=== PATIENT | female | born 1950 | race Caucasian/White ===

== ENCOUNTER 2021-05-01 18:37 | Emergency (ER) | payer OTHER, MEDICARE ==
[~2021-05-01] VITALS: Ht 167.7 cm; Wt 65.7 kg
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
[2021-05-01 19:31] LABS: BASOPHILS % (AUTO) 0 % (0-10); EOSINOPHILS % (AUTO) 1 % (0-10); HEMATOCRIT 42 % (35-52); HEMOGLOBIN 13.4 G/DL (11.5-16.0); LYMPHOCYTES % (AUTO) 29 % (12-44); MEAN CORPUSCULAR HEMOGLOBIN 29 PG (25-34); MEAN CORPUSCULAR HGB CONC 32 G/DL (32-36); MEAN CORPUSCULAR VOLUME 91 FL (80-99); MEAN PLATELET VOLUME 9.8 FL (7.4-10.4); MONOCYTES % (AUTO) 9 % (0-12); NEUTROPHILS % (AUTO) 60 % (42-75); PLATELET COUNT 221 10^3/uL (130-400); WHITE BLOOD COUNT 7.3 10^3/uL (4.3-11.0)
[2021-05-01 19:32] LABS: EOSINOPHILS # (AUTO) 0.1 10^3/uL (0.0-0.3); LYMPHOCYTES # (AUTO) 2.1 X 10^3 (1.0-4.0); MONOCYTES # (AUTO) 0.6 X 10^3 (0.0-1.0); NEUTROPHILS # (AUTO) 4.4 X 10^3 (1.8-7.8)
[2021-05-01 19:37] LABS: PROTHROMBIN TIME PATIENT 13.7 SEC (12.2-14.7)
[2021-05-01 19:44] LABS: BUN/CREATININE RATIO 20; CALCIUM 9.2 MG/DL (8.5-10.1); CARBON DIOXIDE 26 MMOL/L (21-32); CHLORIDE 104 MMOL/L (98-107); CREATININE SERUM 0.81 MG/DL (0.60-1.30); GFR ESTIMATED > 60; GLUCOSE 94 MG/DL (70-105); POTASSIUM 3.4 MMOL/L (3.6-5.0); SODIUM 143 MMOL/L (135-145)
[2021-05-01] MEDS ORDERED: ONDANSETRON 4 MG/2 ML (SDV) Z0FRAN IVP ONE (19:45)
[2021-05-01] MEDS ORDERED: fentaNYL INJ 100 MCG/2 ML AMP IVP PRN (19:45)
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
[2021-05-01 20:28] VITALS: BP 166/73
== END 2021-05-01 20:28 | disposition short-term general hospital (02) ==
LOC: ER FS 18:38
DX: S06.360A Traumatic hemorrhage of cerebrum, unspecified, without loss of consciousness, initial encounter (principal); S16.1XXA Strain of muscle, fascia and tendon at neck level, initial encounter; F07.81 Postconcussional syndrome; R40.2410 Glasgow coma scale score 13-15, unspecified time; V89.2XXA Person injured in unspecified motor-vehicle accident, traffic, initial encounter; Y92.488 Other paved roadways as the place of occurrence of the external cause
CPT/HCPCS: 36415; 70450; 70486; 72125; 80048; 85025; 85610; 85730; 99291

== ENCOUNTER 2021-05-09 13:24 | Emergency (ER) | payer OTHER, MEDICARE ==
[~2021-05-09] VITALS: Ht 167.7 cm; Wt 63.4 kg
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
[2021-05-09 14:54] VITALS: BP 144/66
== END 2021-05-09 14:55 | disposition home or self-care (01) ==
LOC: EDUNIT# 13:24 → ER FS 13:26
DX: S00.03XA Contusion of scalp, initial encounter (principal); S06.9X0A Unspecified intracranial injury without loss of consciousness, initial encounter; V89.2XXA Person injured in unspecified motor-vehicle accident, traffic, initial encounter
CPT/HCPCS: 70450; 72125

== ENCOUNTER → 2021-05-21 | Outpatient (CLI) | payer MEDICARE, OTHER ==
[~2021-05-21] MED LIST: GADOBUTROL 7.5 MMOL/7.5 ML (GADAVIST) VIAL IV ONE
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
== END ==
LOC: RAD 14:45
PROVIDERS: ATTEND Neurological Surgery
DX: I63.9 Cerebral infarction, unspecified (principal); I62.9 Nontraumatic intracranial hemorrhage, unspecified; G93.6 Cerebral edema; I67.81 Acute cerebrovascular insufficiency
CPT/HCPCS: 70553

== ENCOUNTER 2021-07-13 13:24 | Emergency (ER) | payer OTHER, MEDICARE ==
[~2021-07-13] VITALS: Ht 167.7 cm; Wt 65.8 kg
[2021-07-13 13:28] VITALS: BP 158/90
--- NOTE | 2021-07-13 13:39 | ED EENT ---
History of Present Illness General Chief Complaint: Eye Problems Stated Complaint: LT EYE BLEED Source: patient History of Present Illness Date Seen by Provider: Jul 13, 2021 Time Seen by Provider: 13:39 Initial Comments Patient with left scleral hemorrhage abrupt onset this morning. Reports subtle foreign body sensation no loss or change in vision. Patient is not on anticoagulation therapy and states her blood pressure is normally well controlled. Denies trauma to this region. No headache. No other acute symptoms or complaints. Timing/Duration: abrupt Severity: mild Location: eye (L) Prearrival Treatment: other Modifying Factors: Improves With Other Associated Symptoms: other Allergies and Home Medications Allergies Coded Allergies: No Known Drug Allergies (Unverified , 05/01/21) Patient Home Medication List Home Medication List Reviewed: Yes Review of Systems Review of Systems Constitutional: see HPI Eyes: See HPI Past Rqovqxy-Bwbzjr-Bxmeta Hx Patient Social History Tobacco Use?: Yes Smoking Status: Never a Smoker Substance use?: No Alcohol Use?: No Pt feels they are or have been: No Immunizations Up To Date Tetanus Booster (TDap): Unknown Seasonal Allergies Seasonal Allergies: No Past Medical History Surgeries: Yes (club foot, hemmorroid/ fissure) Adenoidectomy, Appendectomy, Tonsillectomy Respiratory: No Cardiac: No Neurological: Yes (brain bleed) Traumatic Brain Injury Genitourinary: No Gastrointestinal: Yes (diverticulitis) Musculoskeletal: Yes (club foot) Endocrine: No HEENT: No Cancer: No Psychosocial: No Integumentary: No Blood Disorders: No Visual Acuity : Eye Location: Left Physical Exam Vital Signs Vital Signs - First Documented 07/13/21 13:28 Temp 36.1 Pulse 64 Resp 18 B/P (MAP) 158/90 (112) Pulse Ox 99 O2 Delivery Room Air Height, Weight, BMI Height: '" Weight: lbs. oz. kg; 22.00 BMI Method: General Appearance: WD/WN, no apparent distress Eyes: left eye other (Lateral scleral hemorrhage); bilateral eye PERRL, bilateral eye EOMI Nose: normal inspection Progress/Results/Core Measures Results/Orders Vital Signs/I&O 07/13/21 13:28 Temp 36.1 Pulse 64 Resp 18 B/P (MAP) 158/90 (112) Pulse Ox 99 O2 Delivery Room Air Departure Communication (Admissions) Isolated scleral hemorrhage Impression Primary Impression: Scleral hemorrhage of left eye Disposition: HOME, SELF-CARE Condition: Stable Departure-Patient Inst. Decision time for Depature: 13:54 Referrals: PERLA MAXWELL MD (PCP/Family) Primary Care Physician Patient Instructions: Subconjunctival Hemorrhage Add. Discharge Instructions: You were evaluated in the emergency department for bleeding of the left eye membrane. This is a medical condition that does not require medical treatment or follow-up. You may take Tylenol as needed for pain. Follow-up with your eye doctors if further concerns. All discharge instructions reviewed with patient and/or family. Voiced understanding. NING ZHENG DO Jul 13, 2021 13:39
--- OUTSIDE RECORDS SUMMARY | 2021-07-13 23:17 | XMS REPORT | Encounter Summary ---
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 [place] [address] Social History Date Tobacco Use Types Packs/Day Years Used Never Smoker Smokeless Tobacco: Never Used Sex Assigned at Date Recorded Not on file Date Recorded COVID-19 Exposure Response 05/01/2021 7:54 PM CDT In the last month, have you been in contact with No / Unsure someone who was confirmed or suspected to have Coronavirus / COVID-19? documented as of this encounter Functional Status Date of Assessment Functional Status Response 05/01/2021 Does the patient have a hearing impairment: No documented as of this encounter Plan of Treatment Order Schedule Name Type Priority Associated Diag noses Expected: 05/17/2021 (Approximate), Expi res: 05/17/2022 MRI HEAD WO/W CONTRAST Imaging Routine Intracr anial hemorrhage (HCC) documented as of this encounter Goals Goal Patient Associated Recent Progress Patient-Stat Aut hor Goal Type Problems ed? Remain independent Hospital Not on track No Ashrenetta ft, (05/02/2021 8:04 PM YANIRA Mims CDT) documented as of this encounter Visit Diagnoses Diagnosis Traumatic brain injury, with loss of co nsciousness of 30 minutes or less, initial encounter (HCC) - Primary Intracranial hemorrhage (HCC) Unspecified intracranial hemorrhage documented in this encounter Additional Health Concerns Assessment Noted Time A fall risk assessment has been completed for the pat ient 05/04/2021 9:05 AM CDT documented as of this encounter
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
--- OUTSIDE RECORDS SUMMARY | 2021-07-13 23:17 | XMS REPORT | Encounter Summary ---
Author Author [facility] Organization [facility] Address Unknown Phone Unavailable Care Team Providers Care Mail Room Clerk Name Role Phone Tarik Henning MD PCP Reason for Visit * Reason Onset Date Comments Referral 06/07/2021 Encounter Details Care Team Description Date Type Department Dotty Pineda MD [address] [facility] [address] [place] [address] Referral 06/07/2021 Telephone Rehabilitation Medi cine: [facility] [place] [address] [address] Social History Date Tobacco Use [...] on file Date Recorded COVID-19 Exposure Response 05/31/2021 2:26 PM CDT In the last month, have you been in contact with No / Unsure someone who was confirmed or suspected to have Coronavirus / COVID-19? documented as of this encounter Functional Status Date of Assessment Functional Status Response 05/01/2021 Does the patient have a hearing impairment: No documented as of this encounter Miscellaneous Notes * Telephone Encounter - Rosendo Buckley - 06/07/2021 10:17 AM CDT Attempted to contact grand daughter as I have been unable to contact patient. [facility], PT and Speech therapy referrals be faxed to [facility] in [place], [place]. As I spoke with that office they can only acce pt the PT and OT orders. No answer left voice mail requesting where to fax these referrals too either a new location or where to fax the speech therapy referral .Rosendo Bukcley documented in this encounter Plan of Treatment Not on filedocumented as of this encounter Goals Goal Patient Associated Recent Progress Patient-Stat Aut hor Goal Type Problems ed? Remain independent Hospital Not on track No Tony mesa, (05/02/2021 8:04 PM Prasanna RN CDT) documented as of this encounter Visit Diagnoses Not on filedocumented in this encounter Additional Health Concerns Assessment Noted Time PHQ-9 Depression Total Score: 4 05/31/2021 3:00 PM CDT A fall risk assessment has been completed for the pat ient 05/31/2021 3:15 PM CDT PHQ-2 Depression Total Score: 0 05/31/2021 3:00 PM CDT documented as of this encounter
--- OUTSIDE RECORDS SUMMARY | 2021-07-13 23:17 | XMS REPORT | Encounter Summary ---
Author Author [facility] Organization [facility] Address Unknown Phone Unavailable Care Team Providers Care Salesperson Stereo Equipment Name Role Phone Tarik Henning MD PCP Encounter Details Care Team Description Date Type Department 05/21/2021 Hospital Imaging: [facility] [place] [address], [address] [place] [address] Social History Date Tobacco Use Types Packs/Day [...] impairment: No documented as of this encounter Medications at Time of Discharge Start Date End Date Medication Sig Dispensed Refills WYHAUSZ-HYCLISGME-IPEGVZC Take 1 tablet 0 D2 PO by mouth twice daily. cetirizine (ZYRTEC) 10 mg Take 10 mg by 0 tablet mouth at bedtime daily. coenzyme Q10 100 mg cap Take 100 mg 0 by mouth daily. 05/04/2021 melatonin 3 mg tab Take one 0 tablet by mouth at bedtime daily. vitamin E 100 unit Take 100 0 capsule Units by mouth daily. 05/04/2021 06/08/2021 acetaminophen (TYLENOL) Take two 60 tablet 0 325 mg tablet tablets by mouth every 6 hours while awake for 5 days, THEN two tablets every 6 hours as needed for Pain for up to 30 days. 05/04/2021 05/31/2021 docusate (COLACE) 100 mg Take one 180 capsule 0 capsule capsule by mouth twice daily. 05/04/2021 05/31/2021 meclizine (ANTIVERT) 25 Take one 30 each 0 mg tablet tablet by mouth three times daily. 05/04/2021 05/31/2021 ondansetron (ZOFRAN ODT) Dissolve one 10 tablet 0 8 mg rapid dissolve tablet by tablet mouth every [address] on tongue to disolve. 05/04/2021 05/31/2021 polyethylene glycol 3350 Take one 12 each 0 (MIRALAX) 17 g packet packet by mouth daily as needed. documented as of this encounter Discharge Disposition Code Departure Means Destination Disposition Home Home or Self Care documented in this encounter Plan of Treatment Not on filedocumented as of this encounter Goals Goal Patient Associated Recent Progress Patient-Stat Aut hor Goal Type Problems ed? Remain independent Hospital Not on track No Tony mesa, (05/02/2021 8:04 PM YANIRA Mims CDT) documented as of this encounter Procedures Comments Procedure Name Priority Date/Time Associated Diag nosis MRI HEAD EXTERNAL IMAGING Routine 05/21/2021 12:00 AM CDT documented in this encounter Results * MRI HEAD EXTERNAL IMAGING (05/21/2021 12:00 AM CDT) Specimen Narrative Performed At This order has been auto finalized and does not contain a result. documented in this encounter Visit Diagnoses Not on filedocumented in this encounter Additional Health Concerns Assessment Noted Time A fall risk assessment has been completed for the pat ient 05/04/2021 9:05 AM CDT documented as of this encounter
--- OUTSIDE RECORDS SUMMARY | 2021-07-13 23:17 | XMS REPORT | Encounter Summary ---
Author Author [facility] Organization [facility] Address Unknown Phone Unavailable Care Team Providers Care Interactive Digital Media Specialist Name Role Phone Tarik Henning MD PCP Encounter Details Care Team Description Date Type Department Team, Tbi Coordinator 05/24/2021 Documentation Traumatic Brain Inj ury: [facility] [place] [address], [address] [place] [address] Social History Date Tobacco Use [...] as of this encounter Progress Notes * Carlyn Hernandez RN - 05/24/2021 11:34 AM CDT Fax sent to [facility] ([phone]) for MRI Head image and report. Fax confirmation received. documented in this encounter Plan of Treatment Not on filedocumented as of this encounter Goals Goal Patient Associated Recent Progress Patient-Stat Aut hor Goal Type Problems ed? Remain independent Hospital Not on track Nichole mesa, (05/02/2021 8:04 PM YANIRA Mims CDT) documented as of this encounter Visit Diagnoses Not on filedocumented in this encounter Additional Health Concerns Assessment Noted Time A fall risk assessment has been completed for the pat ient 05/04/2021 9:05 AM CDT documented as of this encounter
--- OUTSIDE RECORDS SUMMARY | 2021-07-13 23:17 | XMS REPORT | Encounter Summary ---
Author Author [facility] Organization [facility] Address Unknown Phone Unavailable Care Team Providers Care Scout Executive Name Role Phone Tarik Henning MD PCP Reason for Visit * Reason Onset Date Comments Eye Problem 07/13/2021 Encounter Details Care Team Description Date Type Department Homer Weiss MD [address] [address] Eye Problem 07/13/2021 Telephone Eye Care: [address] [place] [id number] Social History Date Tobacco Use Types [...] encounter Miscellaneous Notes * Telephone Encounter - Pam Chawla COA - 07/13/2021 1:35 PM CDT Patient contacted clinic today stating that she noticed a heme in white part of left eye. Patient did not injure or exert pressure to her eyes, she maintains th is just appeared as a red blob. No decrease in vision overall, slight blurrines s for reading. Pt went into [place] [facility] to be seen as she is a distance from our clinic. Patient has requested FUV with Dr. Weiss, this has been scheduled or Friday@10:15AM. If this appt. Is not needed after pt. Seen at ER, aawis ling will call to cancel. No further action required today. documented in this encounter Plan of Treatment [...] risk assessment has been completed for the awais ling 05/31/2021 3:15 PM CDT PHQ-2 Depression Total Score: 0 05/31/2021 3:00 PM CDT documented as of this encounter
--- OUTSIDE RECORDS SUMMARY | 2021-07-13 23:17 | XMS REPORT | Encounter Summary ---
Author Author [facility] Organization [facility] Address Unknown Phone Unavailable Care Team Providers Care Drywall Finisher Foreman Name Role Phone Tarik Henning MD PCP Reason for Visit * Reason Onset Date Comments General Question 05/18/2021 Encounter Details Care Team Description Date Type Department Fatuma Harper MD [address] [facility] [address] [place] [address] General Question 05/18/2021 Telephone Traumatic Brain Inj ury: Main [place], [facility] [address] [place] [address] Social History Date Tobacco Use [...] encounter Miscellaneous Notes * Telephone Encounter - Carlyn Hernandez RN - 05/18/2021 2:04 PM CDT Patient is scheduled to f/u in TBI Clinic.Patient's granddaughter just called an d said patient hit her head on 05/09-went to ED in [place], [place] and scanned her h ead and there was no change from previous scan. Reports no falls or head trauma since then. When she discharged from the hospital she had some issues with her l eft peripheral visit. Patient woke up this am and is reporting "fogginess" with her vision and some new temporal pain. No other neurological changes. Discussed with Dr. Harper and instructed pt to go to the ED. Pt's granddaughter in agreem ent and verbalized understanding. documented in this encounter Plan of Treatment [...]
--- OUTSIDE RECORDS SUMMARY | 2021-07-13 23:17 | XMS REPORT | Encounter Summary ---
Author Author [facility] Organization [facility] Address Unknown Phone Unavailable Care Team Providers Care Geographic Information Scientist Name Role Phone Tarik Henning MD PCP Encounter Details Care Team Description Date Type Department 05/31/2021 Travel Social History Date Tobacco Use Types Packs/Day [...] as of this encounter Plan of Treatment Not on [...]
--- OUTSIDE RECORDS SUMMARY | 2021-07-13 23:17 | XMS REPORT | Encounter Summary ---
Author Author [facility] Organization [facility] Address Unknown Phone Unavailable Care Team Providers Care Boilermaker Industrial Boilers Name Role Phone Tarik Henning MD PCP Encounter Details Care Team Description Date Type Department Dotty Pineda MD [address] [facility] [address] [place] [address] 06/05/2021 Documentation Rehabilitation Medi cine: Main [place], [facility] [address], [address] [address] Social History Date Tobacco Use [...] as of this encounter Progress Notes * Rosendo Buckley - 06/05/2021 12:18 PM CDT Faxed [facility] Radiology Scheduling in [place], [place] at fax# [phone], patient MRI head order to be scheduled around 08/01/2021 and request for appointment conf irmation so we may coordinate clinic visit.Rosendo Buckley documented in this encounter Plan of Treatment [...]
--- OUTSIDE RECORDS SUMMARY | 2021-07-13 23:17 | XMS REPORT | Encounter Summary ---
Author Author [facility] Organization [facility] Address Unknown Phone Unavailable Care Team Providers Care Mail Carrier And Clerk Name Role Phone Tarik Henning MD PCP Encounter Details Care Team Description Date Type Department Dotty Pineda MD [address] [facility] [address] [place] [address] 06/08/2021 Documentation Rehabilitation Medi cine: Main [place], [facility] [address], [address] [address] Social History Date Tobacco Use [...] encounter Progress Notes * Rosendo Buckley - 06/08/2021 2:22 PM CDT Spoke with patient. Per patient request we have faxed PT/OT referrals to [facility] in [place], at fax# [phone].Rosendo Buckley [facility] [place] [facility] [place] [phone][place]Rosendo Buckley Faxed patient MRI head to [facility] at fax# [phone] to be c ompleted around 08/01/2021.Rosendo Buckley Faxed Disability report to [employer] at fax# [phone].Rosendo Buckley documented in this encounter Plan of Treatment Not on filedocumented as of this encounter Goals Goal Patient Associated Recent Progress Patient-Stat Aut hor Goal Type Problems ed? Remain independent Hospital Not on track Nichole mesa, (05/02/2021 8:04 PM Prasanna RN CDT) [...]
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
--- OUTSIDE RECORDS SUMMARY | 2021-07-13 23:17 | XMS REPORT | Encounter Summary ---
Author Author [facility] Organization [facility] Address Unknown Phone Unavailable Care Team Providers Care Quality Control Engineering Technician Name Role Phone Tarik Henning MD PCP Encounter Details Care Team Description Date Type Department 07/04/2021 Travel Social History Date Tobacco Use Types [...]
== END 2021-07-13 14:00 | disposition home or self-care (01) ==
LOC: EDUNIT# 13:24 → ER FS 13:25
DX: H11.32 Conjunctival hemorrhage, left eye (principal); Z87.820 Personal history of traumatic brain injury
CPT/HCPCS: 99282

== ENCOUNTER → 2021-07-16 | Outpatient (CLI) | payer MEDICARE, OTHER ==
[~2021-07-16] VITALS: Ht 167.6 cm; Wt 65.9 kg
[~2021-07-16] MED LIST changes: -GADOBUTROL 7.5 MMOL/7.5 ML (GADAVIST) VIAL IV ONE; +LIDOCAINE 1% INJ 20 ML 20 ML VIAL INJ ONE
--- NOTE | 2021-07-16 13:07 | Diagnostic Imaging Report ---
INDICATION: Thyroid nodule. Patient presents for ultrasound-guided fine needle aspiration and biopsy. FINDINGS: The patient was brought to the procedure room and placed on the table in the supine position. Ultrasound imaging of the left neck was performed to evaluate for an appropriate entry site. The left neck was then prepped and draped in the usual sterile fashion. A small amount of 1% lidocaine was utilized for local anesthesia. A total of 4 passes was made into the dominant solid nodule in the posterior left lobe of the thyroid utilizing 25-gauge needles and fine needle aspiration technique. A single pass was made with a Rotex needle and a Rotex biopsy was performed. The patient tolerated the procedure well and left the Department in stable condition. IMPRESSION: Successful ultrasound guided fine needle aspiration and Rotex biopsy of the dominant left lobe thyroid nodule. Pathology results are currently pending. Dictated by: Dictated on workstation # [id number]
== END ==
LOC: RAD 09:45
PROVIDERS: ATTEND Otolaryngology Otolaryngology/Facial Plastic Surgery
DX: E04.1 Nontoxic single thyroid nodule (principal)
CPT/HCPCS: 10005

== ENCOUNTER → 2022-03-21 | Outpatient (CLI) | payer MEDICARE ==
--- NOTE | 2022-03-21 16:15 | Diagnostic Imaging Report ---
PROCEDURE: US Thyroid. TECHNIQUE: Multiple real-time grayscale images were obtained of the thyroid in various projections. INDICATION: Thyroid nodule follow-up. COMPARISON: Thyroid ultrasound from 07/16/2021. FINDINGS: Right thyroid lobe: The right thyroid lobe measures 5.3 x 2.0 x 1.3 cm. There are numerous nodules throughout the right thyroid lobe, the majority of which are subcentimeter in size. The most suspicious nodule measures 0.6 x 0.5 x 0.4 cm, is part solid and has echogenic comet tail artifact associated with it, indicative of a colloid cyst. Isthmus: The thyroid isthmus measures 0.3 cm. Left thyroid lobe: The left thyroid lobe measures 4.8 x 2.3 x 1.5 cm. Multiple nodules are present throughout the left thyroid. The most suspicious is a solid isoechoic nodule in the mid left thyroid with circumscribed margins and no echogenic foci. This nodule measures 2.9 x 1.6 x 1.3 cm. IMPRESSION: Bilateral thyroid nodules are mildly suspicious. The largest left thyroid nodule underwent FNA and biopsy on 07/16/2021. Please see that pathology for reports. Follow-up of thyroid nodule based upon clinical protocol since biopsy has been performed. ACR TI-RADS: TR3 . Dictated by: Dictated on workstation # [id number]
== END ==
LOC: RAD FS 10:53
PROVIDERS: ATTEND Otolaryngology Otolaryngology/Facial Plastic Surgery
DX: E04.2 Nontoxic multinodular goiter (principal)
CPT/HCPCS: 76536

== ENCOUNTER 2022-11-20 10:34 | Emergency (ER) | payer MEDICARE ==
[~2022-11-20] VITALS: Ht 167.7 cm; Wt 67.1 kg
[2022-11-20 11:01] LABS: BASOPHILS % (AUTO) 0 % (0-10); EOSINOPHILS # (AUTO) 0.1 10^3/uL (0.0-0.3); EOSINOPHILS % (AUTO) 2 % (0-10); HEMATOCRIT 41 % (35-52); HEMOGLOBIN 14.2 g/dL (11.5-16.0); LYMPHOCYTES # (AUTO) 2.4 10^3/uL (1.0-4.0); LYMPHOCYTES % (AUTO) 35 % (12-44); MEAN CORPUSCULAR HEMOGLOBIN 30 pg (25-34); MEAN CORPUSCULAR HGB CONC 34 g/dL (32-36); MEAN CORPUSCULAR VOLUME 88 fL (80-99); MEAN PLATELET VOLUME 10.4 fL (9.0-12.2); MONOCYTES # (AUTO) 0.7 10^3/uL (0.0-1.0); MONOCYTES % (AUTO) 10 % (0-12); NEUTROPHILS # (AUTO) 3.6 10^3/uL (1.8-7.8); NEUTROPHILS % (AUTO) 53 % (42-75); PLATELET COUNT 211 10^3/uL (130-400); WHITE BLOOD COUNT 6.8 10^3/uL (4.3-11.0)
--- NOTE | 2022-11-20 11:01 | ED Neurological Problem ---
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 Around 9:45 AM this morning while in the car with her , she started to act different and more confused. Denies any trauma, weakness, numbness, new vision changes, chest pain, shortness of breath, abdominal pain, nausea, vomiting, diarrhea. She states she does feel cold and does have a headache. Headache is moderate, throbbing, was not immediate in onset. Does not take any blood thinners or any other prescription medications. 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) Ears, Nose, Mouth, Throat: no symptoms reported Respiratory: no symptoms reported Cardiovascular: no symptoms reported Gastrointestinal: no symptoms reported Genitourinary: no symptoms reported Musculoskeletal: no symptoms reported Skin: no symptoms reported Psychiatric/Neurological: See HPI Endocrine: No Symptoms Reported Hematologic/Lymphatic: No Symptoms Reported All Other Systems Reviewed Negative Unless Noted: Yes Past Pmynvuu-Xwhvwv-Hqfrxh Hx Patient Social History Tobacco Use?: No Smoking Status: Never a Smoker Smokeless Tobacco Frequency: Never a User Use of E-Cig and/or Vaping dev: No Use of E-Cig and/or Vaping Maged: Never a User Substance use?: No Alcohol Use?: No Pt feels they are or have been: No Immunizations Up To Date Tetanus Booster (TDap): Unknown Seasonal Allergies Seasonal Allergies: No Past Medical History Surgeries: Yes (club foot, hemmorroid/ fissure) Adenoidectomy, Appendectomy, Tonsillectomy Respiratory: No Cardiac: No Neurological: Yes (brain bleed) Traumatic Brain Injury Genitourinary: No Gastrointestinal: Yes (diverticulitis) Musculoskeletal: Yes (club foot) Endocrine: No HEENT: No Cancer: No Psychosocial: No Integumentary: No Blood Disorders: No Physical Exam Vital Signs Vital Signs - First Documented 11/20/22 10:34 Temp 36.6 Pulse 77 Resp 16 B/P (MAP) 158/88 (111) O2 Delivery Room Air Capillary Refill : Height, Weight, BMI Height: '" Weight: lbs. oz. kg; 23.46 BMI Method: General Appearance: WD/WN, no apparent distress HEENT: PERRL/EOMI, normal ENT inspection, pharynx normal Neck: non-tender, full range of motion, supple, normal inspection Respiratory: chest non-tender, lungs clear, normal breath sounds, no respiratory distress, no accessory muscle use Cardiovascular: regular rate, rhythm, no edema, no murmur Gastrointestinal: normal bowel sounds, non tender, soft; No distended, No guarding, No rebound Back: normal inspection, no CVA tenderness, no vertebral tenderness Extremities: normal range of motion, non-tender, normal inspection, no pedal edema, no calf tenderness, normal capillary refill Neurologic/Psychiatric: no motor/sensory deficits, alert, normal mood/affect, oriented x 3, other (Other than her vision from previous partial blindness, cranial nerves intact) Crainal Nerves: normal hearing, normal speech, PERRL Coordination/Gait: normal finger to nose, normal gait Motor/Sensory: no motor deficit, no sensory deficit, no pronator drift Skin: normal color, warm/dry Lymphatic: no adenopathy Stroke Onset of Symptoms Date of Onset of Symptoms: Nov 20, 2022 Time of Symptom Onset: 09:45 Onset of Symptoms: Yes NIH Stroke Scale Assessment Select: Initial Level of Consciousness: 0=Alert (0), Level of Consciousness- Questions: 0=Answers both month/age (0), LOC Commands: 0=Performs both tasks (0), Gaze: Normal (0), Visual Shane: 0=No visual loss at her baseline (0), Facial Movement (Facial Paresis): 0=Normal symmetrical mnt (0), Motor Function-Arms Right: 0=No drift (0), Motor Function-Arms Left: 0=No drift (0), Motor Function-Legs Right: 0=No drift (0), Motor Function-Legs Left: 0=No drift (0), Limb Ataxia: 0=Absent (0), Sensory: 0=Normal:no loss (0), Best Language: 0=No aphasia (0), Dysarthria: 0=Normal (0), Extinction & Inattention: 0=No abnormality (0), Total: 0 Stroke Thrombolytic Exclusion Intracranial Hemorrhage: Yes (history) Improving Symptoms: Yes TPA Contraindication: Yes IV - TPa Received IV - TPa Procedure Performed?: No Focused Exam Lactate Level 11/20/22 10:45: Lactic Acid Level 2.52*H 11/20/22 13:01: Lactic Acid Level Laboratory Tests Test 11/20/22 10:45 11/20/22 13:01 Lactic Acid Level 2.52 MMOL/L (0.50-2.00) *H Progress/Results/Core Measures Results/Orders Lab Results Laboratory Tests Test 11/20/22 10:45 11/20/22 11:05 11/20/22 13:01 Range/Units White Blood Count 6.8 4.3-11.0 10^3/uL Red Blood Count 4.67 3.80-5.11 10^6/uL Hemoglobin 14.2 11.5-16.0 g/dL Hematocrit 41 35-52 % Mean Corpuscular Volume 88 80-99 fL Mean Corpuscular Hemoglobin 30 25-34 pg Mean Corpuscular Hemoglobin Concent 34 32-36 g/dL Red Cell Distribution Width 12.2 10.0-14.5 % Platelet Count 211 130-400 10^3/uL Mean Platelet Volume 10.4 9.0-12.2 fL Immature Granulocyte % (Auto) 0 % Neutrophils (%) (Auto) 53 42-75 % Lymphocytes (%) (Auto) 35 12-44 % Monocytes (%) (Auto) 10 0-12 % Eosinophils (%) (Auto) 2 0-10 % Basophils (%) (Auto) 0 0-10 % Neutrophils # (Auto) 3.6 1.8-7.8 10^3/uL Lymphocytes # (Auto) 2.4 1.0-4.0 10^3/uL Monocytes # (Auto) 0.7 0.0-1.0 10^3/uL Eosinophils # (Auto) 0.1 0.0-0.3 10^3/uL Basophils # (Auto) 0.0 0.0-0.1 10^3/uL Immature Granulocyte # (Auto) 0.0 0.0-0.1 10^3/uL Prothrombin Time 12.6 12.2-14.7 SEC INR Comment 0.9 0.8-1.4 Activated Partial Thromboplast Time 30 24-35 SEC Sodium Level 140 135-145 MMOL/L Potassium Level 3.9 3.6-5.0 MMOL/L Chloride Level 102 98-107 MMOL/L Carbon Dioxide Level 23 21-32 MMOL/L Anion Gap 15 H 5-14 MMOL/L Blood Urea Nitrogen 16 7-18 MG/DL Creatinine 0.72 0.60-1.30 MG/DL Estimat Glomerular Filtration Rate 88 BUN/Creatinine Ratio 22 Glucose Level 106 H 70-105 MG/DL Lactic Acid Level 2.52 *H 0.50-2.00 MMOL/L Calcium Level 9.9 8.5-10.1 MG/DL Corrected Calcium 9.5 8.5-10.1 MG/DL Total Bilirubin 0.4 0.1-1.0 MG/DL Aspartate Amino Transf (AST/SGOT) 16 5-34 U/L Alanine Aminotransferase (ALT/SGPT) 12 0-55 U/L Alkaline Phosphatase 85 40-136 U/L Total Protein 7.2 6.4-8.2 GM/DL Albumin 4.5 3.2-4.5 GM/DL Influenza Type A (RT-PCR) Not Detected Not Detecte Influenza Type B (RT-PCR) Not Detected Not Detecte SARS-CoV-2 RNA (RT-PCR) Not Detected Not Detecte Urine Color YELLOW Urine Clarity CLEAR Urine pH 8.0 5-9 Urine Specific [place] 1.010 L 1.016-1.022 Urine Protein NEGATIVE NEGATIVE Urine Glucose (UA) NEGATIVE NEGATIVE Urine Ketones TRACE H NEGATIVE Urine Nitrite NEGATIVE NEGATIVE Urine Bilirubin NEGATIVE NEGATIVE Urine Urobilinogen 0.2 < = 1.0 MG/DL Urine Leukocyte Esterase NEGATIVE NEGATIVE Urine RBC (Auto) NEGATIVE NEGATIVE Urine RBC NONE /HPF Urine WBC RARE /HPF Urine Squamous Epithelial Cells NONE /HPF Urine Crystals NONE /LPF Urine Bacteria NEGATIVE /HPF Urine Casts NONE /LPF Urine Mucus NEGATIVE /LPF Urine Culture Indicated NO My Orders Orders - PRAKASH BLAIR MD Ct Head Wo-R/O Stroke (11/20/22 10:35) Influenza A And B By Pcr (11/20/22 10:54) Covid 19 Inhouse Test (11/20/22 10:54) Cbc With Automated Diff (11/20/22 10:54) Comprehensive Metabolic Panel (11/20/22 10:54) Blood Culture (11/20/22 10:54) Urinalysis (11/20/22 10:54) Urine Culture (11/20/22 10:54) Protime With Inr (11/20/22 10:54) Partial Thromboplastin Time (11/20/22 10:54) Chest 1 View Ap/Pa Only (11/20/22 10:54) Ed Iv/Invasive Line Start (11/20/22 10:54) Ed Iv/Invasive Line Start (11/20/22 10:54) Ekg Tracing (11/20/22 10:54) Vital Signs Adult Sepsis Patie Q15M (11/20/22 10:54) O2 (11/20/22 10:54) Remove Rings In Anticipation O (11/20/22 10:54) Lactic Acid Analyzer (11/20/22 10:54) Ns Iv 1000 Ml (Sodium Chloride 0.9%) (11/20/22 11:45) Ketorolac Injection (Toradol Injection) (11/20/22 11:45) Acetaminophen Tablet (Tylenol Tablet) (11/20/22 11:45) Prochlorperazine Injection (Compazine In (11/20/22 12:45) Diphenhydramine Injection (Benadryl Inje (11/20/22 12:45) Medications Given in ED Current Medications Medications Dose Ordered Sig/Alhaji Route Start Time Stop Time Status Last Admin Dose Admin Acetaminophen 1,000 mg ONCE ONCE PO 11/20/22 11:45 11/20/22 11:46 DC 11/20/22 11:44 1,000 MG Diphenhydramine HCl 12.5 mg ONCE ONCE IVP 11/20/22 12:45 11/20/22 12:46 DC 11/20/22 12:43 12.5 MG Ketorolac Tromethamine 15 mg ONCE ONCE IVP 11/20/22 11:45 11/20/22 11:46 DC 11/20/22 11:44 15 MG Prochlorperazine Edisylate 5 mg ONCE ONCE IV 11/20/22 12:45 11/20/22 12:46 DC 11/20/22 12:43 5 MG Vital Signs/I&O 12/21/22 10:34 Temp 36.6 Pulse 77 Resp 16 B/P (MAP) 158/88 (111) O2 Delivery Room Air Progress Progress Note : Progress Note 72-year-old female with above history coming in via EMS due to mental status change and vision changes. ABCs were intact and vitals were stable on presentation. NIH was technically 0 given her vision did objectively come out to the same as her baseline with left-sided hemianopsia from prior occipital hemorrhagic stroke. Blood pressure was elevated on arrival, but did come down on its own from 200 for EMS systolic to 140s to 160s for us. She does have a headache, it was not immediate in onset. The patient was met in the CT scanner on arrival and this was negative for acute abnormality. Given her symptoms started just over an hour prior to arrival, negative CT head for hemorrhage is sensitive enough to rule it out. I contacted [facility] neurology, and discussed the case with Dr. Wilde. Given her symptoms are improving relatively rapidly in the ER even with her blood pressure going down (if it was an ischemic stroke he states her symptoms should be getting worse with her blood pressure improving), as well as her history of hemorrhagic stroke, he did not recommend tPA at this time. He believes it could be recrudescence of her prior insults versus complex migraine. He believed if she gets back to her baseline, it would be reasonable to discharge back home with short-term follow-up. Her ABCD2 score is 3 making her low risk if this was a TIA to have a stroke in the near future. An IV was placed and basic labs were obtained and were significant for normal glucose, normal electrolytes essentially, urinalysis without evidence of infection. Chest x-ray without acute abnormality. We treated the patient's headache, and her symptoms near completely resolved. Family and the patient believe she is back to her baseline at this time. I believe she is stable for discharge with outpatient follow-up given she is at her baseline. She was sent home with strict return precautions. Dr. Maxwell came to the ER as well and we discussed the patient's case. He gave her a new blood pressure cuff to take home and keep a journal. If she has consistent high pressures then he will start her on medicines. At the time of discharge here her pressure was 139/69 for me. Initial ECG Impression Date: Nov 20, 2022 Initial ECG Impression Time: 11:20 Initial ECG Rate: 69 Initial ECG Rhythm: Normal Sinus Comment Narrow QRS, normal axis, no significant ST changes or T wave abnormalities Diagnostic Imaging Diagonstic Imaging: Xray (chest), CT (head) Comments [facility], [place] NAME: CATALINO DENNY [facility] REC#: [id number] PT STATUS: REG ER : 1950 PHYSICIAN: PRAKASH BLAIR MD ADMIT DATE: 11/20/22/ER FS Draft Date of Exam:11/20/22 CHEST 1 VIEW AP/PA ONLY INDICATION: Altered mental status. FINDINGS: Lungs are clear. No failure, effusion, or pneumothorax. IMPRESSION: No acute appearing abnormality. Dictated on workstation # [id number] Dict: 11/20/22 1117 Trans: 11/20/22 1120 [id number] Interpreted by: HADLEY HWANG Electronically signed by: ADMIT DATE: 11/20/22/ER FS Draft Date of Exam:11/20/22 CT HEAD WO-R/O STROKE PROCEDURE: CT head wo r/o stroke. TECHNIQUE: Multiple contiguous axial images were obtained through the brain without the use of intravenous contrast. Auto Exposure Controls were utilized during the CT exam to meet ALARA standards for radiation dose reduction. INDICATION: Stroke like symptoms. History of previous intraparenchymal hemorrhage. COMPARISON: 05/09/2021 FINDINGS: Since the previous exam, intraparenchymal hematoma at the right parietal occipital junction has since resolved. There is small area of residual chronic encephalomalacia. Note is also made of scattered areas of diminished attenuation within the periventricular and subcortical deep white matter consistent with chronic small vessel ischemic changes. There is no new large area of loss of ortiz-white matter junction differentiation to suggest cerebral edema or evolving acute territorial infarct. Ventricles and cortical sulci are mildly diffusely prominent consistent with age-related parenchymal volume loss. There is no new mass effect or midline shift. No new acute intra-axial or extra-axial intracranial hemorrhage is seen. Bony calvarium is intact. Paranasal sinuses and mastoid air cells are clear. IMPRESSION: 1. No acute intracranial abnormalities. No CT evidence acute infarct, mass, nor hemorrhage. 2. Age-related parenchymal volume loss and chronic small vessel ischemic changes in the deep white matter. 3. Interval resolution of previously described right-sided intraparenchymal hemorrhage. Again, there is small area of residual encephalomalacia. Report was called to GARY Sheets by anitha at 11:30am. Dictated on workstation # [id number] Dict: 11/20/22 1053 Trans: 11/20/22 1130 ANITHA [id number] Interpreted by: FRANCISCA MOLINA MD Electronically signed by: Departure Impression Primary Impression: Headache Qualified Codes: G44.209 - Tension-type headache, unspecified, not intractable Additional Impression: Vision changes Disposition: 01 HOME, SELF-CARE Condition: Improved Departure-Patient Inst. Decision time for Depature: 13:32 Referrals: PERLA MAXWELL MD (PCP) Primary Care Physician Patient Instructions: Headache, Adult ED Add. Discharge Instructions: We believe your symptoms today were due to your acutely elevated blood pressure as well as your headache. Take your blood pressure 1-2 times per day and write this down in a journal. I would not focus on the numbers too much even if they are high unless you are very symptomatic such as the worst headache of her life, severe chest pain, severe shortness of breath, weakness we cannot move 1 side of her body, numbness where you cannot feel 1 side of her body on top of the high blood pressure. If you have those symptoms, then I would want you to go to the ER. The medicines we gave you will make you drowsy and loopy likely for the rest of the day. Try to stay safe at home, rest, and have someone to assist if you need to get up to walk. Take ibuprofen and/or Tylenol as needed for headache. If you are not feeling back to 100% within the next couple of days, try to get a follow-up with Dr. Logan, otherwise try to follow-up with him in the next 1 to 2 weeks to review your blood pressure log. Work/School Note: Family Work Note Patient Received Medical Care In the Emergency Department On: Nov 20, 2022 Patient Will Be Able to Return to Work/School On: Nov 21, 2022 PRAKASH BLAIR MD Nov 20, 2022 11:01
[2022-11-20 11:16] LABS: BILIRUBIN,URINE NEGATIVE (NEGATIVE); CLARITY,URINE CLEAR; COLOR,URINE YELLOW; GLUCOSE, URINE (UA) NEGATIVE (NEGATIVE); KETONES,URINE TRACE (NEGATIVE); LEUKOCYTE ESTERASE ,URINE NEGATIVE (NEGATIVE); NITRITE,URINE NEGATIVE (NEGATIVE); PROTEIN,URINE NEGATIVE (NEGATIVE)
[2022-11-20 11:17] LABS: INR 0.9 (0.8-1.4); PROTHROMBIN TIME PATIENT 12.6 SEC (12.2-14.7)
--- NOTE | 2022-11-20 11:21 | Diagnostic Imaging Report ---
INDICATION: Altered mental status. FINDINGS: Lungs are clear. No failure, effusion, or pneumothorax. IMPRESSION: No acute appearing abnormality. Dictated by: Dictated on workstation # [id number]
[2022-11-20 11:27] LABS: POTASSIUM 3.9 MMOL/L (3.6-5.0)
[2022-11-20 11:28] LABS: ALBUMIN 4.5 GM/DL (3.2-4.5); BILIRUBIN,TOTAL 0.4 MG/DL (0.1-1.0); CALCIUM 9.9 MG/DL (8.5-10.1); CREATININE SERUM 0.72 MG/DL (0.60-1.30); TOTAL PROTEIN 7.2 GM/DL (6.4-8.2)
--- NOTE | 2022-11-20 11:31 | Diagnostic Imaging Report ---
PROCEDURE: CT head wo r/o stroke. TECHNIQUE: Multiple contiguous axial images were obtained through the brain without the use of intravenous contrast. Auto Exposure Controls were utilized during the CT exam to meet ALARA standards for radiation dose reduction. INDICATION: Stroke like symptoms. History of previous intraparenchymal hemorrhage. COMPARISON: 05/09/2021 FINDINGS: Since the previous exam, intraparenchymal hematoma at the right parietal occipital junction has since resolved. There is small area of residual chronic encephalomalacia. Note is also made of scattered areas of diminished attenuation within the periventricular and subcortical deep white matter consistent with chronic small vessel ischemic changes. There is no new large area of loss of ortiz-white matter junction differentiation to suggest cerebral edema or evolving acute territorial infarct. Ventricles and cortical sulci are mildly diffusely prominent consistent with age-related parenchymal volume loss. There is no new mass effect or midline shift. No new acute intra-axial or extra-axial intracranial hemorrhage is seen. Bony calvarium is intact. Paranasal sinuses and mastoid air cells are clear. IMPRESSION: 1. No acute intracranial abnormalities. No CT evidence acute infarct, mass, nor hemorrhage. 2. Age-related parenchymal volume loss and chronic small vessel ischemic changes in the deep white matter. 3. Interval resolution of previously described right-sided intraparenchymal hemorrhage. Again, there is small area of residual encephalomalacia. Report was called to GARY Sheets by todd at 11:30am. Dictated by: Dictated on workstation # [id number]
[2022-11-20 11:35] LABS: BACTERIA,URINE NEGATIVE /HPF; WBC,URINE RARE /HPF
[2022-11-20] MEDS ORDERED: NS IV 1000 ML 1,000 ML IV SCH (11:45)
[2022-11-20] MEDS ORDERED: ACETAMINOPHEN 500 MG TAB (TYLENOL) PO ONE (11:45)
[2022-11-20] MEDS ORDERED: KETOROLAC 15 MG/ML VIAL IVP ONE (11:45)
[2022-11-20] MEDS ORDERED: PROCHLORPERAZINE 10 MG/2ML INJ (COMPAZINE) IV ONE (12:45)
[2022-11-20] MEDS ORDERED: diphenhydrAMINE 50 MG/ML INJ (BENADRYL) IVP ONE (12:45)
[2022-11-20 13:45] VITALS: BP 147/84
== END 2022-11-20 13:47 | disposition home or self-care (01) ==
LOC: EDUNIT# 10:34 → ER FS 10:36
DX: R51.9 Headache, unspecified (principal); H53.47 Heteronymous bilateral field defects; H53.9 Unspecified visual disturbance; R03.0 Elevated blood-pressure reading, without diagnosis of hypertension; Z20.822 Contact with and (suspected) exposure to COVID-19
CPT/HCPCS: 36415; 70450; 71045; 80053; 81000; 83605; 85025; 85610; 85730; 87040; 87088; 87636; 93005

== ENCOUNTER → 2022-12-10 | Outpatient (CLI) | payer MEDICARE ==
--- NOTE | 2022-12-10 12:10 | Diagnostic Imaging Report ---
PROCEDURE: US Thyroid. TECHNIQUE: Multiple Real-time grayscale images were obtained of the thyroid in various projections. INDICATION: Thyroid masses. COMPARISON: 03/21/2022. FINDINGS: The right thyroid lobe measures 4.6 x 1.9 x 1.2 cm and has a tiny benign 1 cm as well as subcentimeter nodules which are unchanged with mixed solid/cystic character. The left thyroid lobe measures 4.8 x 2.5 x 1.5 cm and has a dominant left lower pole nodule measuring 2.9 x 1.5 x 1.3 cm, identical in size to the prior exam. It is hypoechoic, solid, and vascularized. No extrathyroidal extension. There are no associated calcifications. This is a Ti-RADS 4 lesion which has been previously biopsied and is unchanged in size from multiple priors. IMPRESSION: Dominant Ti-RADS 4 left lobe lesion which has been previously biopsied and is unchanged. Additional small benign behaving thyroid nodules are also stable. No adverse development or new mass. Dictated by: Dictated on workstation # [id number]
== END ==
LOC: RAD FS 08:58
PROVIDERS: ATTEND Otolaryngology Otolaryngology/Facial Plastic Surgery
DX: E04.2 Nontoxic multinodular goiter (principal)
CPT/HCPCS: 76536